=== PATIENT | male | born 1940 | race African-American/Black ===

== ENCOUNTER → 2017-01-11 | Outpatient (CLI) | payer MEDICARE ==
[~2017-01-11] MED LIST: CONTRAST GIVEN MC PRN; IOHEXOL 240 MG/ML 50ML VIAL. PO ONE; IOHEXOL 300 MG/ML 75 ML VIAL IV ONE
--- NOTE | 2017-01-11 14:02 | RAD ---
Indication sigmoid colon cancer. Staging. Axial images through the chest, abdomen and pelvis were obtained. Both oral and IV contrast were administered. 75 cc of Omnipaque 300 was administered intravenously. No prior imaging is available. CT chest: Findings. The thoracic aorta appears unremarkable. No significant hilar or mediastinal adenopathy is seen. No dominant soft tissue mass in either lung is seen. An acute finding is not seen in the chest. There is no evidence of metastatic disease. CT abdomen and pelvis: Findings. There is a small mass involving the liver near the dome measuring approximately 4 to 5 mm. This is likely incidental and reflective of a small cyst. It is not completely characterized, however, on this study. No definite significant finding associated with the liver however is seen. The gallbladder appears grossly normal. The spleen appears normal. No pancreatic pathology is seen. There are no adrenal masses. Small masses are seen in the right kidney likely reflecting cysts. The kidneys are otherwise unremarkable.. There are a few small retroperitoneal lymph nodes. These are likely incidental. Definite pathologic central or retroperitoneal adenopathy is not seen. Acute finding in the abdomen or definite evidence of metastatic disease is not seen. In the pelvis no focal mass or inflammatory process is seen. Occasional diverticula are seen associated with the large bowel. Significant adenopathy is not seen. The prostate is mildly enlarged. IMPRESSION: No acute finding seen in the chest, abdomen or pelvis. No definite evidence of metastatic disease. Small mass at the dome of the liver likely reflecting a cyst. Right renal cysts. Mildly enlarged prostate. PQRS Compliance Statement: One or more of the following individualized dose reduction techniques were utilized for this examination: 1. Automated exposure control 2. Adjustment of the mA and/or kV according to patient size 3. Use of iterative reconstruction technique
== END | disposition home or self-care (01) ==
LOC: CT 09:02
PROVIDERS: ATTEND Internal Medicine Hematology & Oncology
DX: C18.7 Malignant neoplasm of sigmoid colon (principal)
CPT/HCPCS: 71260; 74177; Q9966; Q9967

== ENCOUNTER → 2018-02-12 | Outpatient (CLI) | payer MEDICARE, OTHER ==
[2018-02-12] MEDS: IOHEXOL 300 MG/ML 100ML VIAL. IV (09:15)
[2018-02-12] MEDS: IOHEXOL 240 MG/ML 50ML VIAL. PO (09:15)
== END | disposition home or self-care (01) ==
LOC: CT 12:34
DX: C18.7 Malignant neoplasm of sigmoid colon (principal); N40.0 Benign prostatic hyperplasia without lower urinary tract symptoms; K57.30 Diverticulosis of large intestine without perforation or abscess without bleeding; N28.1 Cyst of kidney, acquired; I70.0 Atherosclerosis of aorta
CPT/HCPCS: 71260; 74177; Q9966; Q9967

== ENCOUNTER → 2018-04-11 | Outpatient (CLI) | payer MEDICARE, OTHER ==
--- NOTE | 2018-04-11 17:20 | RAD ---
2 view right knee study Clinical indications: Right knee pain. No injury. FINDINGS: No acute fracture or dislocation or osteolytic process is seen. Mild primary degenerative osteoarthritis of the lateral tibiofemoral joint compartment and the patellofemoral joint compartment is seen. Small right knee joint effusion is seen. IMPRESSION: Mild primary degenerative osteoarthritis. Electronically signed by: Sree Bauer MD (04/11/2018 5:17 PM) [id number]
== END | disposition home or self-care (01) ==
LOC: RAD 11:56
PROVIDERS: ATTEND Nurse Practitioner
DX: M17.11 Unilateral primary osteoarthritis, right knee (principal); Z85.038 Personal history of other malignant neoplasm of large intestine
CPT/HCPCS: 73560

== ENCOUNTER → 2019-02-25 | Outpatient (CLI) | payer MEDICARE, OTHER ==
[~2019-02-25] MED LIST changes: -CONTRAST GIVEN MC PRN; +CONTRAST GIVEN. MC PRN; +IOHEXOL 300 MG/ML 100ML VIAL. IV ONE; -IOHEXOL 300 MG/ML 75 ML VIAL IV ONE
[2019-02-25 08:00] LABS: BASO # 0.1 x10^3/uL (0.0-0.2); BASO % 1 % (0-3); EOS # 0.1 x10^3/uL (0.0-0.7); EOS % 2 % (0-3); HEMOGLOBIN 15.2 g/dL (13.0-17.5); LYMPH % 36 % (24-48); MEAN CORPUSCULAR HEMOGLOBIN 28 pg (25-35); MEAN CORPUSCULAR HGB CONC 32 g/dL (31-37); MEAN CORPUSCULAR VOLUME 86 fL (79-100); MONO # 0.8 x10^3/uL (0.0-1.1); MONO % 14 % (0-9); NEUT # 2.7 x10^3/uL (1.8-7.7); NEUT % 48 % (31-73); PLATELET COUNT 143 x10^3/uL (140-400); RED BLOOD COUNT 5.47 x10^6/uL (4.30-5.70); RED CELL DISTRIBUTION WIDTH 14.8 % (11.5-14.5); WHITE BLOOD COUNT 5.6 x10^3/uL (4.0-11.0)
[2019-02-25 08:23] LABS: ALBUMIN 3.9 g/dL (3.4-5.0); ALBUMIN/GLOBULIN RATIO 0.9 (1.0-1.7); CALCIUM 9.5 mg/dL (8.5-10.1); CREATININE 1.3 mg/dL (0.7-1.3); GFR 64.4; TOTAL BILIRUBIN 0.6 mg/dL (0.2-1.0); TOTAL PROTEIN 8.4 g/dL (6.4-8.2)
--- NOTE | 2019-02-25 11:46 | RAD ---
EXAM: CT Chest, Abdomen and Pelvis with IV contrast CLINICAL HISTORY: Sigmoid colon cancer COMPARISON: 02/12/2019, 01/11/2017 TECHNIQUE: Helical CT of the chest, abdomen and pelvis was performed following the administration of intravenous contrast. Axial, coronal and sagittal reformatted images were generated. ---PQRS compliance statement - One or more of the following individualized dose reduction techniques were utilized for this study: 1. Automated exposure control 2. Adjustment of the mA and/or kV according to patient size 3. Use of iterative reconstruction technique--- FINDINGS: Chest: Heart is not enlarged. Coronary artery and aortic root calcifications are seen. No pleural effusion or pneumothorax. No axillary lymphadenopathy. No mediastinal or hilar lymphadenopathy. Linear opacities in the lung bases likely scarring/atelectasis. No suspicious lung nodule or mass is seen. Wedge-shaped opacities in the right lower lobe likely atelectasis. Abdomen and Pelvis: Subcentimeter hypodense hepatic dome lesion is too small to characterize, possibly cyst or hamartoma. Gallbladder is normal. No biliary ductal dilatation. Pancreas is unremarkable. Spleen and adrenal glands are normal in appearance. Symmetric nephrograms. Bilateral hypodense renal lesions are likely cysts, essentially unchanged. No hydronephrosis or hydroureter. Diffuse bladder wall thickening may be seen with cystitis or from prior posttreatment change. Moderate colonic stool content is seen. Anastomotic suture line is seen at the rectosigmoid junction. Colonic diverticulosis without evidence for acute diverticulitis. No evidence for bowel obstruction. No abdominal or pelvic lymphadenopathy. Bones: Multifocal degenerative changes are seen including the spine and hip joints. No obvious aggressive lesion is identified. IMPRESSION: No thoracic, abdominal or pelvic lymphadenopathy. No evidence for metastatic disease. Apparent bladder wall thickening may be related to cystitis or possible radiation/treatment change. Electronically signed by: Norris Cruz MD (02/25/2019 11:43 AM) [facility]
== END | disposition home or self-care (01) ==
LOC: CT 08:34
PROVIDERS: ATTEND Internal Medicine Hematology & Oncology
DX: C18.7 Malignant neoplasm of sigmoid colon (principal); I25.10 Atherosclerotic heart disease of native coronary artery without angina pectoris; I70.0 Atherosclerosis of aorta; K57.30 Diverticulosis of large intestine without perforation or abscess without bleeding; M16.0 Bilateral primary osteoarthritis of hip; M47.819 Spondylosis without myelopathy or radiculopathy, site unspecified; R91.8 Other nonspecific abnormal finding of lung field
CPT/HCPCS: 71260; 74177; 80053; 82378; 85025; Q9966; Q9967; 36415

== ENCOUNTER → 2019-06-05 | Outpatient (CLI) | payer MEDICARE, OTHER ==
[~2019-06-05] MED LIST changes: -CONTRAST GIVEN. MC PRN; +GADOTERATE 5 MMOL/10ML VIAL. IVP ONE; -IOHEXOL 240 MG/ML 50ML VIAL. PO ONE; -IOHEXOL 300 MG/ML 100ML VIAL. IV ONE; +LISI-130 PO
--- NOTE | 2019-06-05 15:26 | KCIC ---
MRI Brain with and without contrast History: Asymmetrical sensorineural hearing loss Technique: Multiplanar, multi sequential pre and postcontrast MR imaging was performed of the brain. Comparison: None Findings: There is some motion degradation. There is no evidence of recent infarct or cytotoxic edema. Ventricular size is proportionate to the sulcal spaces. There is mild generalized supratentorial atrophy.There is no significant midline shift, intraaxial mass effect, or focal abnormal extra-axial fluid collection. There is tiny focus of T2 and FLAIR hyperintense signal of the right temporal white matter. There is no significant hemosiderin deposition of the brain parenchyma. There is no nodular parenchymal or leptomeningeal enhancement. There is preservation of the major intracranial flow-voids at the skull base. The cerebellar tonsils are normal in location. There is no significant abnormality of the pineal gland or pituitary gland. There is mild bilateral ethmoid air cell mucosal thickening, negligible maxillary sinus mucosal thickening The mastoid air cells are aerated. There is preserved marrow signal of the clivus. There is no nodular enhancing lesion of the cerebellopontine angles or the internal auditory canals. Vestibules, cochlea, semicircular canals appear normally formed bilaterally. Impression: 1. There is no nodular enhancement of the cerebellopontine angles or the internal auditory canals. There is mild generalized supratentorial involutional change. There is small focus of likely nonspecific gliosis of the right temporal white matter. Electronically signed by: Gold Campos MD (06/05/2019 3:23 PM) [id number]
--- NOTE | 2019-06-05 15:27 | KCIC ---
EYE FOR FOREIGN BODY History: Screening for foreign body prior to MRI Comparison: None. Findings: 2 views of the orbits are submitted. There is no metallic foreign body in the region of orbits Impression: 1. There is no metallic foreign body in the region of orbits. Electronically signed by: Gold Campos MD (06/05/2019 3:24 PM) [id number]
== END | disposition home or self-care (01) ==
LOC: KCIC MRI 13:07
PROVIDERS: ATTEND Otolaryngology
DX: G31.89 Other specified degenerative diseases of nervous system (principal); J34.89 Other specified disorders of nose and nasal sinuses; H90.5 Unspecified sensorineural hearing loss
CPT/HCPCS: 70030; 70553; 82565; A9575

== ENCOUNTER → 2019-09-18 | Outpatient (CLI) | payer MEDICARE, OTHER ==
[~2019-09-18] MED LIST changes: -GADOTERATE 5 MMOL/10ML VIAL. IVP ONE
--- NOTE | 2019-09-18 12:05 | CARD ---
MR#: [id number] Date of Study: 09/18/2019 Ordering Physician: DELVIN PRATER, Referring Physician: DELVIN PRATER Tech: Sujit Priest RDCS APPROVED REPORT EXAM: Two-dimensional and M-mode echocardiogram with Doppler and color Doppler. Other Information Quality : AverageHR: 80bpm INDICATION Murmur RISK FACTORS Hypertension Hyperlipidemia 2D DIMENSIONS RVDd3.4 (2.9-3.5cm)Left Atrium(2D)2.5 (1.6-4.0cm) IVSd1.4 (0.7-1.1cm)Aortic Root(2D)3.8 (2.0-3.7cm) LVDd3.3 (3.9-5.9cm)LVOT Diameter2.1 (1.8-2.4cm) PWd1.2 (0.7-1.1cm)LVDs2.1 (2.5-4.0cm) FS (%) 36.1 %SV30.6 ml LVEF(%)67.0 (>50%) Aortic Valve AoV Peak Hakeem.169.1cm/Evans Peak GR.11.4mmHg LVOT Peak Hakeem.140.1cm/sAVA (VMAX)2.75cm2 AI P 1/2 Hlhi699ay Mitral Valve MV E Rdwzznoi12.2cm/sMV DECEL RANY545gm MV A Wfaioqxl23.3cm/sE/A Ratio0.7 MV A [id number] Pulmonary Valve PV Peak Xhribrex96.4cm/s Tricuspid Valve TR P. Qbzrnhxt249hj/sRAP JXYFBDUQ6lsLv TR Peak Gr.25wnVqDMDL91avCc Pulmonary Vein S1 Swtuyuar98.0cm/sD2 Zljsxabq51.4cm/s PVa dgqtlfrk81lhny LEFT VENTRICLE The left ventricle is normal size. There is mild concentric left ventricular hypertrophy. The left ve ntricular systolic function is normal. The Ejection Fraction is 60-65%. There is normal LV segmental wall motion. Transmitral Doppler flow pattern is Grade I-abnormal relaxation pattern. There is no harriet tricular septal defect visualized. RIGHT VENTRICLE The right ventricle is normal size. The right ventricular systolic function is normal. ATRIA The left atrium size is normal. The right atrium size is normal. The interatrial septum is intact wit h no evidence for an atrial septal defect or patent foramen ovale as noted on 2-D or Doppler imaging. AORTIC VALVE The aortic valve is moderately thickened but opens well. Doppler and Color Flow revealed mild to mode rate aortic regurgitation. There is no significant aortic valvular stenosis. MITRAL VALVE The mitral valve is normal in structure and function. There is no mitral valve stenosis. Doppler and Color Flow revealed no mitral valve regurgitation noted. TRICUSPID VALVE The tricuspid valve is normal in structure and function. Doppler and Color Flow revealed trace tricus pid regurgitation. PAP is estimated at 29 mmHg. There is no tricuspid valve stenosis. PULMONIC VALVE The pulmonary valve is normal in structure and function. Doppler and Color Flow revealed no pulmonic valvular regurgitation. There is no pulmonic valvular stenosis. GREAT VESSELS The aortic root is normal in size. The ascending aorta is normal in size. The pulmonary artery is nor mal. The IVC is normal in size and collapses >50% with inspiration. PERICARDIAL EFFUSION There is no pleural effusion. There is no evidence of significant pericardial effusion. Critical Notification Critical Value: No <Conclusion> The left ventricular systolic function is normal. The Ejection Fraction is 60-65%. There is normal LV segmental wall motion. Transmitral Doppler flow pattern is Grade I-abnormal relaxation pattern. Mild to moderate aortic regurgitation. Trace tricuspid regurgitation. PAP is estimated at 29 mmHg. There is no evidence of significant pericardial effusion. Signed by : Eugene Bo, Electronically Approved : 09/18/2019 12:05:01
== END | disposition home or self-care (01) ==
LOC: ECHO 10:48
PROVIDERS: ATTEND Pediatrics
DX: I35.1 Nonrheumatic aortic (valve) insufficiency (principal); I51.7 Cardiomegaly
CPT/HCPCS: 93306